=== PATIENT | male | born 1945 | race Two or more races ===

== ENCOUNTER 2018-04-05 20:47 | Emergency (ER) | payer MEDICARE ==
[~2018-04-05] VITALS: Ht 172.7 cm; Wt 95.3 kg
[2018-04-05 20:50] VITALS: BP 173/111
[2018-04-05] MEDS ORDERED: TDAP [DIPH/PERTUSSIS/TET] 0.5 ML VIAL IM ONE ×2 (21:11→21:30)
--- NOTE | 2018-04-05 21:18 | NUR ---
XRAY IN PROGRESS AT THE BEDSIDE.
== END 2018-04-05 21:52 | disposition home or self-care (01) ==
LOC: ER 20:50
DX: S61.211A Laceration without foreign body of left index finger without damage to nail, initial encounter (principal); W23.0XXA Caught, crushed, jammed, or pinched between moving objects, initial encounter; Y93.89 Activity, other specified; Y92.89 Other specified places as the place of occurrence of the external cause; Y99.8 Other external cause status
CPT/HCPCS: 73140-TC; 90715; A4606; A6402; Z7610